=== PATIENT | male | born 1940 | race Caucasian/White ===

== ENCOUNTER 2017-02-18 10:45 | Day surgery (SDC) | payer BC, OTHER ==
[2017-02-12 11:18] VITALS: BMI 32.3
[2017-02-18] MEDS ORDERED: CEFAZOLIN 2 GM/D5W 50 ML IVPB ONE (10:59)
[2017-02-18] MEDS ORDERED: oxyCODONE HCL 10 MG SUSTAINED ACTING TABLET PO STA (10:59)
[2017-02-18] MEDS ORDERED: MIDAZOLAM HCL 2 MG/2 ML SINGLE DOSE VIAL ONE ×2 (12:15→13:06)
--- NOTE | 2017-02-18 12:41 | HP ---
History & Physical Update - History History: No Change - Physical Physical: No Change - Assessment Assessment: No Change - Plan Plan: No Change (full H&P in chart from 02/04/17.)
[2017-02-18] MEDS ORDERED: BUPIVACAINE HCL/PF 2.5 MG/ML - 30 ML VIAL IJ ONE (12:59)
[2017-02-18] MEDS ORDERED: LIDOCAINE 1%-EPI 1:100,000 30 ML MDV IJ ONE (12:59)
[2017-02-18] MEDS ORDERED: THROMBIN (BOVINE) 5,000 UNIT VIAL TP ONE (12:59)
[2017-02-18] MEDS ORDERED: methylPREDNISolone ACET (DEPO) 40 MG/1 ML VIAL ONE (12:59)
[2017-02-18] MEDS ORDERED: ceFAZolin SODIUM 1 GM VIAL ONE (13:21)
[2017-02-18] MEDS ORDERED: ePHEDrine SULFATE 50 MG/1 ML AMPULE ONE (13:23)
[2017-02-18] MEDS ORDERED: GUM MASTIC/STORAX/MSAL/ALCOHOL 1 DRP DROPSBTL MC ONE (14:48)
[2017-02-18] MEDS ORDERED: oxyCODONE HCL 5 MG TABLET PO PRN (15:29)
[2017-02-18] MEDS ORDERED: ONDANSETRON 4 MG/2 ML VIAL IVPUSH PRN (15:29)
[2017-02-18] MEDS ORDERED: LACTATED RINGERS SOLUTION 1,000 ML IV SCH (15:30)
--- NOTE | 2017-02-18 15:43 | OP ---
Operative Note - Note: Operative Date: 02/18/17 Pre-Operative Diagnosis: spinal stenosis Operation: laminectomy of L4-L5 Post-Operative Diagnosis: Same as Pre-op Surgeon: Sree Mari Director [facility] [employer] [facility]: Mary Kate Peacock Anesthesiologist/TRAIN OPERATIONS SUPERVISOR: Miles Arana Anesthesia: Spinal Estimated Blood Loss (mls): 20 Fluid Volume Replaced (mls): 1,500 Operative Report Dictated: Yes
--- NOTE | 2017-02-18 15:44 | SURG ---
Surgery Steel Sampler Note Steel Sampler: Mary Kate Peacock PA-C Date of Service: 02/18/17 Diagnosis: spinal stenosis Procedure: laminectomy of L4-L5 I was present for the entirety of the operative procedure. For further detail, please refer to operative report. Visit type - Case Type Case Type: Scheduled Admission - Emergency Emergency Visit: No - New patient This patient is new to me today: Yes Date on this admission: 02/18/17 - Critical Care Critical Care patient: No
[2017-02-18] MEDS ORDERED: oxyCODONE HCL 5 MG TABLET ONE (16:23)
--- NOTE | 2017-02-18 16:30 | OP ---
DATE OF OPERATION: 02/18/2017 PREOPERATIVE DIAGNOSIS: Spinal stenosis at L4-5. POSTOPERATIVE DIAGNOSIS: Spinal stenosis at L4-5. PROCEDURE PERFORMED: Laminectomy, L4-5. SURGEON: Sree Mari MD BALLISTICS PROFESSOR: ELIAS Escalante ESTIMATED BLOOD LOSS: 50 mL. INTRAVENOUS FLUIDS: Per Anesthesia. ANESTHESIA: Spinal. COMPLICATIONS: None. DISPOSITION: The patient was brought to the PACU in stable condition. INDICATION FOR SURGERY: The patient is a 76-year-old gentleman who has been suffering from pain from his back down his legs. X-rays and MRI were completed, shown that he had spinal stenosis at L4-5. He had gone through an exhaustive course of treatment which included medications, physical therapy, as well as injections. Unfortunately, his pain continued to persist despite all of this. At this point, risks, benefits, and alternatives were discussed, and the patient consented to surgery. DESCRIPTION OF PROCEDURE: Patient was brought to the operating room by the anesthesia staff. After appropriate patient identification was performed, spinal anesthesia was given. Patient was placed prone onto the Billy frame with all areas of bony prominences well padded at this time. Two needles were placed into his back to lucas off the L3-4-5 segment, and x-ray was taken to confirm that this was correct. The needles were removed, and 10 mL of lidocaine with epinephrine was injected into the back at this time. His back was prepped and draped in a sterile manner. At this time, timeout was completed. An incision was made from the top of L4 down to the bottom of L5. Dissection was carried down to the fascia. Fascia was split open at this time and appropriate retractors were then placed in. A spinal needle was placed onto the L4 lamina. An x-ray was taken to confirm this as correct. The needle was removed, and microscope was brought in. At this point, the interspinous ligament at L4-5 was removed. Portions of the L4 and L5 spinous processes were removed. A bur was used to remove the remaining portion of the lamina. The flavum was identified and was removed. A complete decompression was performed such that by the end of the procedure, the L5 nerve roots appeared to be well decompressed. All bleeding was well controlled at this time. Steroid was placed over the nerve root. FloSeal was placed over that. The fascia was closed with a No. 1 Vicryl suture. The subcutaneous tissues were closed with 2-0 Vicryl suture. Skin was closed with 3-0 Monocryl suture. Dermabond was applied. Steri-Strips were applied. A sterile dressing applied. Patient was placed supine on the OR bed and brought to the PACU in stable condition. Jesse [id number]
[2017-02-18 17:33] VITALS: PULSE 72; TEMP 97.8
[2017-02-18 17:35] VITALS: BP 146/73
== END 2017-02-18 17:20 | disposition home or self-care (01) ==
LOC: FASU 10:45
PROVIDERS: ATTEND Orthopaedic Surgery Orthopaedic Surgery of the Spine
PROC: 01NB0ZZ Release Lumbar Nerve, Open Approach (ICD-10-PCS; principal; 2017-02-18 12:30)
DX: M48.06 Spinal stenosis, lumbar region (principal)
CPT/HCPCS: 72100-TC; 76000-TC; 94760